=== PATIENT | female | born 1975 | race Two or more races ===

== ENCOUNTER 2019-06-02 21:51 | Inpatient (IN) | payer SELFPAY ==
[~2019-06-02] VITALS: Ht 157.5 cm; Wt 53.1 kg
[2019-06-02 22:32] LABS: Basophils # (auto) 0.1 uL; Basophils % (auto) 0.4 % (0.0-2.0); Eosinophils # (auto) 0.1 uL; Eosinophils % (auto) 0.5 % (0.0-7.0); Hematocrit 42.5 % (36.0-46.0); Lymphocytes # (auto) 1.3 uL; Lymphocytes % (auto) 10.2 % (10.0-50.0); Mean Corpuscular Hemoglobin 31.3 pg (28.0-32.0); Mean Corpuscular Hgb Conc. 35.2 g/dL (32.0-36.0); Mean Corpuscular Volume 88.7 fL (80.0-100.0); Monocytes # (auto) 0.6 uL; Monocytes % (auto) 4.5 % (0.0-12.0); Neutrophils # (auto) 10.9 uL; Neutrophils % (auto) 84.4 % (37.0-80.0); Platelet Count (auto) 241 10^3/uL (140-450); Red Blood Cells 4.79 10^6/uL (4.0-5.20); Red Cell Distribution Width 12.9 % (11.8-14.3)
[2019-06-02 22:45] LABS: Albumin 4.1 g/dL (3.4-5.0); Calcium 8.5 mg/dL (8.5-10.1); Potassium 3.8 mmol/L (3.5-5.1)
[2019-06-02 22:47] LABS: Urine Bacteria FEW /hpf (None Seen); Urine Blood Negative /uL (Negative); Urine Mucus FEW (None Seen); Urine WBC 8 /hpf (0 - 5)
[2019-06-02 22:50] LABS: BUN/Creatinine Ratio 18.4; Bilirubin, Total 0.3 mg/dL (0.2-1.0); Total Protein 7.7 g/dL (6.4-8.2)
[2019-06-02] MEDS ORDERED: NITROGLYCERIN 0.4 MG SL TAB SL ONE (23:45)
[2019-06-02] MEDS ORDERED: ACETAMINOPHEN 325 MG TAB PO PRN (23:45)
[2019-06-03] MEDS ORDERED: ENOXAPARIN SOD 60 MG/0.6 ML SYRINGE SC ONE (00:15)
[2019-06-03] MEDS ORDERED: ASPirin 81 mg TAB PO ONE (00:15)
[2019-06-03 00:34] LABS: INR 1.05 (0.9-1.15); Partial Thromboplastin Time 23.9 sec (23.64-32.05)
[2019-06-03] MEDS ORDERED: TEMAZEPAM 15 MG CAP PO PRN (00:45)
[2019-06-03] MEDS ORDERED: ACETAMINOPHEN 325 MG TAB PO PRN (00:45)
[2019-06-03] MEDS ORDERED: D5W/SOD CHLO 0.9% 1,000 ML IV SCH (00:45)
[2019-06-03] MEDS ORDERED: ATORVASTATIN 20 MG TAB PO ONE (00:45)
[2019-06-03] MEDS ORDERED: ONDANSETRON HCL 4 MG/2 ML VIAL IV PRN (00:45)
[2019-06-03 00:59] VITALS: BP 120/74
[2019-06-03] MEDS ORDERED: MORPHINE SULF INJ 2 MG/ML SYRINGE 1ML IV PRN (01:00)
[2019-06-03] MEDS ORDERED: NITROGLYCERIN 0.4 MG SL TAB SL PRN (01:00)
[2019-06-03 02:07] LABS: LDL Cholesterol 93 mg/dL (< 100)
[2019-06-03 02:16] LABS: Cholesterol 167 mg/dL (< 200); HDL Cholesterol 62 mg/dL (40-59); Triglycerides 84 mg/dL (< 150)
[2019-06-03] MEDS ORDERED: cefTRIAXone 1GM/50ML D5W 50 ML IV SCH (09:00)
[2019-06-03] MEDS ORDERED: FAMOTIDINE 20 MG TAB PO SCH (10:00)
[2019-06-03] MEDS ORDERED: ASPirin 81 mg TAB PO SCH (10:00)
[2019-06-03] MEDS ORDERED: ATORVASTATIN 20 MG TAB PO SCH (22:00)
== END 2019-06-03 02:01 | disposition left against medical advice (07) | DRG 281 ==
LOC: ER 21:53 → TELE 21:54
PROVIDERS: ADMIT Nurse Practitioner; ATTEND Family Medicine
DX: I21.4 Non-ST elevation (NSTEMI) myocardial infarction (principal); N39.0 Urinary tract infection, site not specified; Z53.29 Procedure and treatment not carried out because of patient's decision for other reasons
CPT/HCPCS: 36415; 71045; 80053; 80061; 81001; 81025; 84484; 85025; 85379; 85610; 85730; 93005; 96360; 96372; G0378